=== PATIENT | male | born 1995 | race African-American/Black ===

== ENCOUNTER 2019-12-23 09:14 | Emergency (ER) | payer BC ==
--- NOTE | 2019-12-23 09:47 | RAD ---
Chest one view HISTORY: Dyspnea. COMPARISON: 10/24/2010. FINDINGS: Cardiac silhouette is magnified by projection. Pulmonary vasculature is unremarkable. Mediastinum is midline. No lobar consolidation or evidence of pneumothorax. IMPRESSION : No active cardiopulmonary abnormalities are demonstrated.
[2019-12-23 10:00] LABS: #Basophils 0.1 thou/uL (0.0-0.2); #Eosinphils 0.3 thou/uL (0.0-0.7); #Lymphocytes 2.7 thou/uL (1.20-3.40); #Monocytes 0.8 thou/uL (0.11-0.59); #Neutrophils 3.3 thou/uL (1.40-6.50); %Basophils 1.7 % (0.0-1.0); %Eosinophils 4.2 % (0.0-10.0); %Lymphocytes 37.2 % (21.0-51.0); %Monocytes 10.5 % (0.0-10.0); %Neutrophils 46.4 % (42.0-75.0); Hemoglobin 14.2 g/dL (14.0-18.0); Mean Corpuscular HGB CONC 32.2 g/dL (32.0-36.0); Mean Corpuscular Hemoglobin 25.5 pg (27.0-31.0); Mean Corpuscular Volume 79.2 fL (78.0-98.0); Mean Platelet Volume 9.3 fL (7.4-10.4); Platelet Count 129 thou/uL (130-400); RBC Distribution Width 13.9 % (11.5-14.5); Red Blood Cell (RBC) Count 5.56 mill/uL (4.70-6.10); White Blood Cell (WBC) Count 7.1 thou/uL (4.8-10.8)
[2019-12-23 10:23] LABS: ALT (SGPT) 44 U/L (8-55); AST (SGOT) 28 U/L (5-34); Albumin 4.1 g/dL (3.5-5.0); Alkaline Phosphatase 81 U/L (40-110); Anion Gap 12 mmol/L (10-20); BUN (Urea Nitrogen) 11 mg/dL (8.9-20.6); Bilirubin, Total 0.3 mg/dL (0.2-1.2); CK (CPK) 471 U/L (30-200); Calc. Creatinine Clearance 0 mL/min (70-130); Calcium 9.2 mg/dL (7.8-10.44); Carbon Dioxide 23 mmol/L (22-29); Chloride 109 mmol/L (98-107); Estimated GFR-MDRD Greater than 90; Globulin 2.9 g/dL (2.4-3.5); Glucose 102 mg/dL (70-105); Lipase 16 U/L (8-78); Sodium 140 mmol/L (136-145)
--- NOTE | 2019-12-25 16:15 | EKG ---
Test Reason : Blood Pressure : / mmHG Vent. Rate : 071 BPM Atrial Rate : 071 BPM P-R Int : 138 ms QRS Dur : 080 ms QT Int : 346 ms P-R-T Axes : 044 032 019 degrees QTc Int : 375 ms Normal sinus rhythm Nonspecific T wave abnormality Abnormal ECG Confirmed by JOHNNY PARNELL, RYAN ([id number]), senior editor NEELIMA WHIPPLE ([id number]) on 12/25/2019 4:15:01 PM Referred By: Confirmed By:RYAN TURNER MD
== END 2019-12-23 10:58 | disposition home or self-care (01) ==
LOC: ERS 09:14
DX: E86.0 Dehydration (principal); R07.9 Chest pain, unspecified
CPT/HCPCS: 36415; 71045; 80053; 82550; 83690; 84484; 85025; 85379; 93005; 96360

== ENCOUNTER 2020-01-02 10:01 | Emergency (ER) | payer BC ==
[2020-01-02 10:31] LABS: Bilirubin Negative (Negative); Blood, Urine Negative (Negative); Clarity Clear (Clear); Glucose, Urine (Dipstick) Normal (Negative); Leukocyte Negative Leu/uL (Negative); Nitrite Negative (Negative); Protein, Urine (Dipstick) Negative (Neg-Trace); Urobilinogen Normal mg/dL (Less than 2)
--- NOTE | 2020-01-02 13:39 | RAD ---
PORTABLE CHEST ONE VIEW: 01/02/20 at 10:50 a.m. HISTORY: Chest pain. COMPARISON: 12/23/19 FINDINGS: The heart size is normal. The lungs are expanded without lobar consolidation, pneumothoraces, or pleu ral effusions. IMPRESSION: No acute process. POS: ANNE MARIE
== END 2020-01-02 11:29 | disposition home or self-care (01) ==
LOC: ERS 10:01
DX: F41.0 Panic disorder [episodic paroxysmal anxiety] (principal)
CPT/HCPCS: 71045; 81003; 93005

== ENCOUNTER 2020-04-28 13:49 | Emergency (ER) | payer BC | END 2020-04-28 14:53 | disposition home or self-care (01) | LOC: ERS 13:49 | DX: F41.0 Panic disorder [episodic paroxysmal anxiety] (principal); R00.2 Palpitations; Z79.899 Other long term (current) drug therapy | CPT/HCPCS: 93005 ==

== ENCOUNTER 2020-07-17 12:33 | Observation (INO) | payer BC, OTHER ==
[2020-07-17] MEDS ORDERED: Iopamidol-370 76% 500 ML 1 ML ONE (13:24)
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
[2020-07-17] MEDS ORDERED: Morphine 4 MG/ML VIAL ONE (16:47)
[2020-07-17] MEDS ORDERED: Ondansetron PF 4 MG/2 ML Vial ONE (17:04)
[2020-07-17] MEDS ORDERED: Boostrix 0.5 ML (Tdap) VIAL ONE (17:37)
--- NOTE | 2020-07-17 17:43 | CT ---
CT right arm with IV contrast HISTORY: Puncture wound. Right arm injury. FINDINGS: Humerus is intact. No radiopaque foreign bodies are apparent. 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 No contrast extravasation from the arteries evident. Venous contrast is not seen more central than the mid humeral shaft width within a superficial vein o f the medial aspect of the upper arm. This is at the inferior extent of a large ill-defined area of fluid stranding throughout the subcutaneous tissues. The fluid extends deep into the neurovascular gr oove and intermuscular planes. 6 pockets of gas are also present within the superficial and deep intermuscular planes of the upper a rm at the level of the mid to distal humerus. The deepest pockets lie immediately medial to the mid humeral shaft. The largest gas pocket lies immediately lateral to the duplicated brachial artery at t he level of the distal humeral shaft. IMPRESSION : Extensive subcutaneous hematoma with intermuscular muscular extension as detailed above, and intermus cular pockets of gas. No arterial injury is evident. There is apparent involvement and obstruction/thrombosis of the basilic at the medial aspect of the upper arm. No osseous abnormalities or radiopaque foreign bodies.
[2020-07-17 18:15] LABS: Hemoglobin 14.3 g/dL (14.0-18.0); Mean Corpuscular HGB CONC 33.7 g/dL (32.0-36.0); Mean Corpuscular Hemoglobin 26.4 pg (27.0-31.0); Mean Corpuscular Volume 78.3 fL (78.0-98.0); Platelet Count 243 thou/uL (130-400); RBC Distribution Width 13.5 % (11.5-14.5); Red Blood Cell (RBC) Count 5.41 mill/uL (4.70-6.10); White Blood Cell (WBC) Count 14.9 thou/uL (4.8-10.8)
[2020-07-17 18:30] LABS: Band 3 % (5-11); Hypochromia SLIGHT = 6-15 cells (100X) (0-5/hpf); Lymphocytes 18 % (21-51); MDiff Complete? YES; Monocytes 4 % (0-10); Neutrophil 75 % (42-75); Platelet Morphology Comment Appears Adequate
[2020-07-17 18:33] LABS: ALT (SGPT) 42 U/L (8-55); AST (SGOT) 33 U/L (5-34); Albumin 4.3 g/dL (3.5-5.0); Alkaline Phosphatase 81 U/L (40-110); Anion Gap 16 mmol/L (10-20); BUN (Urea Nitrogen) 16 mg/dL (8.9-20.6); Bilirubin, Total 0.2 mg/dL (0.2-1.2); Calc. Creatinine Clearance 0 mL/min (70-130); Calcium 9.7 mg/dL (7.8-10.44); Carbon Dioxide 24 mmol/L (22-29); Chloride 103 mmol/L (98-107); Globulin 4.1 g/dL (2.4-3.5); Glucose 117 mg/dL (70-105); Potassium 3.9 mmol/L (3.5-5.1); Protein, Total 8.4 g/dL (6.0-8.3); Sodium 139 mmol/L (136-145)
[2020-07-17] MEDS ORDERED: traMADol HCl 50 MG TAB PO PRN (19:48)
[2020-07-17] MEDS ORDERED: Morphine 2 MG/ML VIAL SLOW IVP PRN (19:48)
[2020-07-17] MEDS ORDERED: Ondansetron PF 4 MG/2 ML Vial IVP PRN (19:48)
[2020-07-17] MEDS ORDERED: [UNRECOGNIZED DRUG - REMARK] FS SCH (20:00)
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
[2020-07-17 22:48] VITALS: BMI 27.7
[2020-07-17] MEDS: traMADol HCl 50 MG TAB PO PRN (23:10)
[2020-07-17] MEDS ORDERED: Acetaminophen 325 MG TAB PO PRN (23:14)
[2020-07-18] MEDS: CEFAZOLIN 2 GM in Premix Bag 1 BAG IVPB SCH ×2 (02:37→08:59)
[2020-07-18 05:22] LABS: #Basophils 0.1 thou/uL (0.0-0.2); #Eosinphils 0.2 thou/uL (0.0-0.7); #Lymphocytes 3.6 thou/uL (1.20-3.40); #Monocytes 1.1 thou/uL (0.11-0.59); #Neutrophils 4.7 thou/uL (1.40-6.50); %Basophils 0.8 % (0.0-1.0); %Eosinophils 2.3 % (0.0-10.0); %Lymphocytes 37.3 % (21.0-51.0); %Monocytes 11.6 % (0.0-10.0); %Neutrophils 48.1 % (42.0-75.0); Hemoglobin 13.5 g/dL (14.0-18.0); Mean Corpuscular Hemoglobin 25.2 pg (27.0-31.0); Mean Corpuscular Volume 78.7 fL (78.0-98.0); Platelet Count 246 thou/uL (130-400); RBC Distribution Width 13.6 % (11.5-14.5); Red Blood Cell (RBC) Count 5.36 mill/uL (4.70-6.10); White Blood Cell (WBC) Count 9.7 thou/uL (4.8-10.8)
[2020-07-18 06:48] LABS: SARS-CoV-2 MS2 Positive; SARS-CoV-2 N Gene Negative; SARS-CoV-2 S Gene Negative; SARS-CoV-2 by NAA Not Detected (NotDetected); SARS-CoV-2 orf1ab Negative
[2020-07-18] MEDS: traMADol HCl 50 MG TAB PO PRN (10:40)
[2020-07-18 12:04] VITALS: BP 137/91; TEMP 98.8
[2020-07-18] MEDS ORDERED: FLU VACC QS2020-21(6MOS UP)/PF 60 MCG/0.5 ML SYRINGE IM ONE (21:00)
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
== END 2020-07-18 12:05 | disposition home or self-care (01) ==
LOC: ERS 12:33 → SURG A 19:48
PROVIDERS: ADMIT Orthopaedic Surgery; ATTEND Orthopaedic Surgery
DX: S41.131A Puncture wound without foreign body of right upper arm, initial encounter (principal); F41.9 Anxiety disorder, unspecified; Z79.899 Other long term (current) drug therapy; Z88.6 Allergy status to analgesic agent; Z91.018 Allergy to other foods; Z20.828 Contact with and (suspected) exposure to other viral communicable diseases; V83.5XXA Driver of special industrial vehicle injured in nontraffic accident, initial encounter
CPT/HCPCS: 36415; 80053; 85025; 87635; 90471; 90715; 96365; 96366; 96375; G0378; J0690; J2270; J2405; Q9967; U0003

== ENCOUNTER 2020-12-09 15:17 | Emergency (ER) | payer BC ==
[2020-12-09] MEDS ORDERED: Metoclopramide HCl 10 MG/2 ML VIAL ONE (15:49)
[2020-12-09 21:12] LABS: SARS-CoV-2 PCR by NAA Not Detected (NotDetected)
== END 2020-12-09 17:05 | disposition home or self-care (01) ==
LOC: ERS 15:17
DX: R51.9 Headache, unspecified (principal); R11.0 Nausea; Z20.822 Contact with and (suspected) exposure to COVID-19
CPT/HCPCS: 87635; 96372; 99284; J2765; U0003; U0005

== ENCOUNTER 2021-08-05 12:53 | Emergency (ER) | payer BC ==
[2021-08-06 15:21] LABS: SARS-CoV-2 PCR by NAA DETECTED (NotDetected)
== END 2021-08-05 15:13 | disposition home or self-care (01) ==
LOC: ERS 12:53
DX: U07.1 COVID-19 (principal); Z79.899 Other long term (current) drug therapy
CPT/HCPCS: 99284; U0003; U0005